=== PATIENT | female | born 1965 | race Caucasian/White ===

== ENCOUNTER 2016-05-15 11:31 | Emergency (ER) | payer OTHER ==
[~2016-05-15] VITALS: Ht 160 cm; Wt 67.3 kg
[~2016-05-15 11:31] MED LIST: ABILIFY5 MG; ADVAIR 250/501 DISK IH; ADVAIR HFA120 INHALA IH; ADVIL PM1 TABLET PO; ADVIL200 MG PO; ALBUTEROL SULF8.5 GM IH; AMBIEN10 MG PO; ATARAX,VISTARIL25 MG PO; AZELEX 20% CREA30 GM TP; BACTRIM,SEPT1 TABLET PO; BENADRYL ALLERG25 MG PO; BENADRYL25 MG PO; BENADRYL50 MG PO; CEFDINIR300 MG PO; CITALOPRAM HBR20 MG PO; CLINDAMYCIN HC300 MG PO; CLONAZEPAM0.5 MG; CLONAZEPAM1 MG PO; CLONIDINE HCL0.1 MG PO; COGENTIN0.5 MG PO; CORTIZONE-1028 GM TP; CORTIZONE-1057 GM TP; CYCLOBENZAPRINE10 M1 PO; DELTASONE20 M1 PO; DEPAKOTE ER250 MG PO; DEPAKOTE ER500 MG PO; DEPAKOTE250 MG PO; DEPAKOTE500 MG PO; DERMACINRX SIL1 EACH TP; DIVALPROEX SOD250 M1 PO; DIVALPROEX SOD250 MG PO; DIVALPROEX SOD500 M1 PO; DIVALPROEX SOD500 MG PO; ELIMITE 5% CREA60 GM TP; ENDOCET 5-3251 EACH; FAMOTIDINE20 MG PO; FANAPT6 MG PO; FLEXERIL10 MG PO; FLUOXETINE HCL20 MG PO; GABAPENTIN300 MG PO; GABAPENTIN600 MG PO; HALDOL1 MG PO; HALDOL10 MG PO; HALDOL5 MG PO; HALOPERIDOL1 MG PO; KEFLEX500 MG PO; KENALOG,ARISTOC15 G2 TP; KENALOG,ARISTOC80 GM TP; KLONOPIN1 MG PO; LABETALOL HCL100 MG PO; LEXAPRO20 MG PO; LICE TREATMENT118 ML TP; LISINOPRIL10 MG PO; LITHIUM CARBON300 M2 PO; LORATADINE10 M2 PO; MIRTAZAPINE15 MG; MIRTAZAPINE30 MG PO; MOTRIN800 MG PO; NAPROSYN500 MG PO; NAPROXEN500 MG PO; NICOTINE PATCH1 EAC2 TD; NOHOMEMEDS; NORCO 5/3251 TABLET PO; OLANZAPINE10 MG PO; PEPCID40 MG PO; PERCOCET 5/31 TABLET PO; PREDNISONE10 M1 PO; PREDNISONE10 MG PO; PREDNISONE20 MG PO; PREDNISONE50 MG PO; PROAIR HFA8.5 GM; PROAIR HFA8.5 GM IH; PROMETHAZINE HC25 M1 PO; PYRIDIUM100 MG PO; QUETIAPINE FUM100 MG PO; QUETIAPINE FUM200 MG PO; QUETIAPINE FUM400 MG PO; REMERON15 M2 PO; RISPERDAL0.5 MG PO; SEROQUEL200 MG PO; TRIPLE ANTIB28.35 GM TP; VENTOLIN HFA18 GM IH; VIBRAMYCIN100 MG PO; VICODIN,LORT1 TABLET PO; ZANTAC150 MG PO; ZITHROMAX TRI-500 MG PO; ZITHROMAX Z-PA250 MG PO; ZOLOFT50 MG PO; ZOLPIDEM TARTRA10 MG; ZYPREXA15 MG PO; ZYRTEC10 M2 PO
[2016-05-15 14:20] LABS: EOSINOPHIL (%) 1.2 % (0-5); EOSINOPHIL COUNT 0.1 K/uL (0-0.3); HEMATOCRIT 39.1 % (36.0-46.0); IMMATURE GRANULOCYTE (%) 0.2 % (0.0-0.7); IMMATURE GRANULOCYTE COUNT 0.2 K/uL; LYMPHOCYTE COUNT 3.9 K/uL (1.0-2.8); MCH 30.9 PG (29.0-34.0); MCHC 34.3 G/DL (30.0-36.0); MCV 90.1 FL (83-99); MEAN PLAT.VOLUME 9.2 uM^3 (9.5-12.4); MONOCYTE COUNT 0.7 K/uL (0-0.8); NEUTROPHIL (%) 57.7 % (45-76); NEUTROPHIL COUNT 6.5 K/uL (1.8-6.4); PLATELET COUNT 321 K/uL (156-360); RBC DIS.WIDTH-CV 13.3 % (11.8-14.6); RBC DIS.WIDTH-SD 42.8 % (39-53); RED BLOOD COUNT 4.34 M/uL (3.80-5.20); WHITE BLOOD COUNT 11.2 K/uL (4.1-10.2)
[2016-05-15 14:30] LABS: CHLORIDE 101 mEq/L (99-109); POTASSIUM 2.9 mEq/L (3.7-5.4); SODIUM 136 mEq/L (136-147)
[2016-05-15 14:32] LABS: GLUCOSE 95 mg/dL (70-99)
[2016-05-15 14:33] LABS: ANION GAP 10 MEQ/L (2-14)
[2016-05-15 14:36] LABS: GFR ESTIMATE (CALCULATED) > 59 mL/min/
[2016-05-15 14:37] LABS: UREA NITROGEN (BUN) 7 mg/dL (9-23)
[2016-05-15 14:40] LABS: TROP-I INTERPRETATION NEGATIVE; TROPONIN-I < 0.01 ng/mL (0.0-0.30)
[2016-05-15 15:05] LABS: ADD MIUA? NO; BILIRUBIN NEGATIVE; BLOOD NEGATIVE; GLUCOSE (STRIP) NEGATIVE; KETONES NEGATIVE; LEUKOCYTES NEGATIVE; NITRITE NEGATIVE; PROTEIN (STRIP) NEGATIVE; SPECIFIC GRAVITY 1.014 (1.000-1.030); UCUL ADDED? NO; UROBILINOGEN 0.2 MG/DL (0.2-1.0)
[2016-05-15 15:07] LABS: COLOR LT YELLOW ((YELLOW))
[2016-05-15] MEDS ORDERED: PROZAC20 MG PO (15:10)
[2016-05-15] MEDS ORDERED: K-DUR20 MEQ PO (15:56)
[2016-05-15 16:16] VITALS: BP 158/95
== END 2016-05-15 16:18 | disposition home or self-care (01) ==
LOC: EME 11:31
PROVIDERS: Emergency Medicine
DX: R07.89 Other chest pain (principal); F41.9 Anxiety disorder, unspecified; E87.6 Hypokalemia; J45.909 Unspecified asthma, uncomplicated; I10 Essential (primary) hypertension; I25.2 Old myocardial infarction; F17.200 Nicotine dependence, unspecified, uncomplicated
CPT/HCPCS: 71010; 80048; 81003; 84484; 85025; 93005; 99281; 99284; Q0177

== ENCOUNTER 2016-05-26 12:29 | Emergency (ER) | payer OTHER ==
[~2016-05-26] VITALS: Ht 160 cm; Wt 68.1 kg
[~2016-05-26 12:29] MED LIST changes: +K-DUR20 MEQ PO; +PROZAC20 MG PO
[2016-05-26] MEDS ORDERED: GABAPENTIN600 MG PO (13:14)
[2016-05-26] MEDS ORDERED: HYDROXYZINE HCL25 MG PO (13:16)
[2016-05-26] MEDS ORDERED: IBUPROFEN800 MG PO (13:16)
[2016-05-26] MEDS ORDERED: KENALOG,ARISTOC80 GM TP (13:18)
[2016-05-26] MEDS ORDERED: NYSTATIN15 GM TP (13:19)
[2016-05-26] MEDS ORDERED: TRIAMCINOLONE 0.1% TP (13:20)
[2016-05-26 14:14] LABS: HEMATOCRIT 38.3 % (36.0-46.0); MCH 30.5 PG (29.0-34.0); MCHC 34.2 G/DL (30.0-36.0); MCV 89.1 FL (83-99); PLATELET COUNT 397 K/uL (156-360); RBC DIS.WIDTH-CV 13.4 % (11.8-14.6); RBC DIS.WIDTH-SD 42.7 % (39-53)
[2016-05-26 14:26] LABS: CHLORIDE 101 mEq/L (99-109); POTASSIUM 3.4 mEq/L (3.7-5.4); SODIUM 134 mEq/L (136-147)
[2016-05-26 14:28] LABS: GLUCOSE 105 mg/dL (70-99); PROTHROMBIN TIME 10.6 (9.2-11.2); PTT 26.8 (25-32)
[2016-05-26 14:29] LABS: ANION GAP 11 MEQ/L (2-14)
[2016-05-26 14:31] LABS: GFR ESTIMATE (CALCULATED) > 59 mL/min/
[2016-05-26 14:32] LABS: UREA NITROGEN (BUN) 5 mg/dL (9-23)
[2016-05-26 16:27] VITALS: BP 142/85
== END 2016-05-26 16:28 | disposition home or self-care (01) ==
LOC: EME 12:29
PROVIDERS: Physician Assistant
DX: S80.12XA Contusion of left lower leg, initial encounter (principal); E87.1 Hypo-osmolality and hyponatremia; E87.6 Hypokalemia; F20.0 Paranoid schizophrenia; I10 Essential (primary) hypertension; I25.2 Old myocardial infarction; J44.9 Chronic obstructive pulmonary disease, unspecified; M54.9 Dorsalgia, unspecified; G89.29 Other chronic pain; F17.200 Nicotine dependence, unspecified, uncomplicated
CPT/HCPCS: 80048; 83880; 85027; 85610; 85730; 93971; 99281; 99284

== ENCOUNTER 2016-08-21 04:57 | Inpatient (IN) | payer OTHER ==
[~2016-08-21] VITALS: Ht 162.6 cm; Wt 64.2 kg
[~2016-08-21 04:57] MED LIST changes: +HYDROXYZINE HCL25 MG PO; +IBUPROFEN800 MG PO; +NYSTATIN15 GM TP; +TRIAMCINOLONE 0.1% TP
[2016-08-21 05:41] LABS: HEMATOCRIT 42.2 % (36.0-46.0); MCH 30.2 PG (29.0-34.0); MCHC 33.6 G/DL (30.0-36.0); MCV 89.8 FL (83-99); MEAN PLAT.VOLUME 9.6 uM^3 (9.5-12.4); PLATELET COUNT 311 K/uL (156-360); RBC DIS.WIDTH-CV 13.3 % (11.8-14.6); RBC DIS.WIDTH-SD 43.8 % (39-53); WHITE BLOOD COUNT 8.5 K/uL (4.1-10.2)
[2016-08-21 05:52] LABS: CHLORIDE 102 mEq/L (99-109); POTASSIUM 3.4 mEq/L (3.7-5.4); SODIUM 136 mEq/L (136-147)
[2016-08-21 05:53] LABS: GLUCOSE 108 mg/dL (70-99)
[2016-08-21 05:55] LABS: ANION GAP 12 MEQ/L (2-14)
[2016-08-21 05:57] LABS: GFR ESTIMATE (CALCULATED) > 59 mL/min/; SERUM ETHYL ALCOHOL < 10 mg/dL
[2016-08-21 05:58] LABS: UREA NITROGEN (BUN) 5 mg/dL (9-23)
[2016-08-21 09:27] LABS: ADD MIUA? YES; BILIRUBIN NEGATIVE; BLOOD SMALL; COLOR YELLOW ((YELLOW)); GLUCOSE (STRIP) NEGATIVE; KETONES NEGATIVE; LEUKOCYTES NEGATIVE; NITRITE NEGATIVE; PROTEIN (STRIP) 30; SPECIFIC GRAVITY 1.006 (1.000-1.030); UROBILINOGEN 0.2 MG/DL (0.2-1.0)
[2016-08-21 09:36] LABS: AMPHETAMINE NEGATIVE (500 ng/mL); BARBITURATES NEGATIVE (200 ng/mL); BENZODIAZEPINES NEGATIVE (150 ng/mL); COCAINE NEGATIVE (150 ng/mL); INTERNAL CONTROLS VALID? YES; METHADONE NEGATIVE (200 ng/mL); METHAMPHETAMINE NEGATIVE (500 ng/mL); OPIATES (MORPHINE) NEGATIVE (100 ng/mL); OXYCODONE NEGATIVE (100 ng/mL); PHENCYCLIDINE NEGATIVE (25 ng/mL); PROPOXYPHENE NEGATIVE (300 ng/mL); THC CANNABINOIDS NEGATIVE (50 ng/mL); TRICYCLIC ANTIDEPRESSANTS NEGATIVE (300 ng/mL)
[2016-08-21 09:39] LABS: BACTERIA RARE /HPF; EPITHELIAL CELLS RARE /HPF; HYALINE CASTS 0-5 /LPF; MUCUS TRACE /LPF; RED BLOOD CELLS 0-5 /HPF (0-5); UCUL ADDED? NO; WHITE BLOOD CELLS 0-5 /HPF (0-5)
[2016-08-21] MEDS ORDERED: BACTROBAN OINTM22 GM TP (13:23)
[2016-08-21 13:55] VITALS: BP 114/88
[2016-08-21 14:13] VITALS: BP 181/100
[2016-08-21 16:15] VITALS: BP 186/106
[2016-08-21 18:35] VITALS: BP 168/97
[2016-08-22 00:10] VITALS: BP 120/75
[2016-08-22 08:19] VITALS: BP 145/89
[2016-08-22 16:27] VITALS: BP 134/79
[2016-08-23 08:07] VITALS: BP 144/87
[2016-08-23 16:00] VITALS: BP 152/79
[2016-08-24 07:50] VITALS: BP 153/83
[2016-08-24 13:09] VITALS: BP 142/83
[2016-08-24 15:32] VITALS: BP 151/72
[2016-08-25 07:54] VITALS: BP 152/86
[2016-08-25 15:36] VITALS: BP 159/90
[2016-08-26 07:54] VITALS: BP 147/83
[2016-08-27 07:59] VITALS: BP 142/94
[2016-08-27 15:42] VITALS: BP 150/85
[2016-08-28 07:44] VITALS: BP 176/90
[2016-08-28] MEDS ORDERED: GABAPENTIN600 MG PO (09:46)
[2016-08-28] MEDS ORDERED: OLANZAPINE20 MG PO (09:46)
[2016-08-28] MEDS ORDERED: FLUOXETINE HCL20 MG PO (09:46)
[2016-08-28] MEDS ORDERED: ATARAX,VISTARIL50 MG PO (12:59)
== END 2016-08-28 13:30 | disposition home or self-care (01) | DRG 885 ==
LOC: EME 04:57 → 1WEST 11:53 → EDOF 11:53 → 1WEST 13:52
PROVIDERS: Emergency Medicine
DX: F25.9 Schizoaffective disorder, unspecified (principal); F23 Brief psychotic disorder; F17.210 Nicotine dependence, cigarettes, uncomplicated; R45.1 Restlessness and agitation; I10 Essential (primary) hypertension; G43.909 Migraine, unspecified, not intractable, without status migrainosus; J45.909 Unspecified asthma, uncomplicated; M54.9 Dorsalgia, unspecified; G62.9 Polyneuropathy, unspecified; F41.9 Anxiety disorder, unspecified; I25.10 Atherosclerotic heart disease of native coronary artery without angina pectoris; R45.4 Irritability and anger; R00.0 Tachycardia, unspecified; B88.9 Infestation, unspecified; G47.00 Insomnia, unspecified; G89.29 Other chronic pain; Z91.14 Patient's other noncompliance with medication regimen; Z91.128 Patient's intentional underdosing of medication regimen for other reason; Z60.2 Problems related to living alone; Z56.0 Unemployment, unspecified; Z73.6 Limitation of activities due to disability; I25.2 Old myocardial infarction; Z88.5 Allergy status to narcotic agent; Z87.440 Personal history of urinary (tract) infections
CPT/HCPCS: 80048; 81003; 85027; 90837; 94640; 94640 76; 97150 GO; 97166 GO; 99202; 99281; 99285; G0480; Q0177

== ENCOUNTER 2016-08-29 21:44 | Inpatient (IN) | payer OTHER ==
[~2016-08-29] VITALS: Ht 160 cm; Wt 66.2 kg
[~2016-08-29 21:44] MED LIST changes: +ATARAX,VISTARIL50 MG PO; +BACTROBAN OINTM22 GM TP; +OLANZAPINE20 MG PO
[2016-08-29 22:59] LABS: HEMATOCRIT 37.5 % (36.0-46.0); MCH 30.4 PG (29.0-34.0); MCHC 33.9 G/DL (30.0-36.0); MCV 89.7 FL (83-99); MEAN PLAT.VOLUME 9.4 uM^3 (9.5-12.4); PLATELET COUNT 285 K/uL (156-360); RBC DIS.WIDTH-CV 13.4 % (11.8-14.6); RBC DIS.WIDTH-SD 44.2 % (39-53); RED BLOOD COUNT 4.18 M/uL (3.80-5.20); WHITE BLOOD COUNT 11.3 K/uL (4.1-10.2)
[2016-08-29 23:08] LABS: CHLORIDE 104 mEq/L (99-109); POTASSIUM 3.6 mEq/L (3.7-5.4); SODIUM 138 mEq/L (136-147)
[2016-08-29 23:11] LABS: GLUCOSE 105 mg/dL (70-99)
[2016-08-29 23:12] LABS: ANION GAP 9 MEQ/L (2-14); TOTAL BILIRUBIN 0.2 mg/dL (0.0-1.0)
[2016-08-29 23:13] LABS: SERUM ETHYL ALCOHOL < 10 mg/dL
[2016-08-29 23:14] LABS: ALKALINE PHOSPHATASE 91 IU/L (3-129); GFR ESTIMATE (CALCULATED) > 59 mL/min/
[2016-08-29 23:15] LABS: UREA NITROGEN (BUN) 10 mg/dL (9-23)
[2016-08-29 23:19] LABS: ADD MIUA? YES; BILIRUBIN NEGATIVE; BLOOD SMALL; COLOR STRAW ((YELLOW)); GLUCOSE (STRIP) NEGATIVE; KETONES NEGATIVE; LEUKOCYTES NEGATIVE; NITRITE NEGATIVE; PROTEIN (STRIP) NEGATIVE; SPECIFIC GRAVITY 1.004 (1.000-1.030); UROBILINOGEN 0.2 MG/DL (0.2-1.0)
[2016-08-29 23:21] LABS: BACTERIA RARE /HPF; EPITHELIAL CELLS RARE /HPF; MUCUS NONE SEEN /LPF; RED BLOOD CELLS 0-5 /HPF (0-5); WHITE BLOOD CELLS 0-5 /HPF (0-5)
[2016-08-29 23:28] LABS: AMPHETAMINE NEGATIVE (500 ng/mL); BARBITURATES NEGATIVE (200 ng/mL); BENZODIAZEPINES NEGATIVE (150 ng/mL); COCAINE NEGATIVE (150 ng/mL); INTERNAL CONTROLS VALID? YES; METHADONE NEGATIVE (200 ng/mL); METHAMPHETAMINE NEGATIVE (500 ng/mL); OPIATES (MORPHINE) NEGATIVE (100 ng/mL); OXYCODONE NEGATIVE (100 ng/mL); PHENCYCLIDINE NEGATIVE (25 ng/mL); PROPOXYPHENE NEGATIVE (300 ng/mL); THC CANNABINOIDS PRESUMPTIVE POSITIVE (50 ng/mL); TRICYCLIC ANTIDEPRESSANTS NEGATIVE (300 ng/mL)
[2016-08-29 23:29] LABS: ADD MEDTOX COMMENT Y
[2016-08-30 09:42] VITALS: BP 178/103
[2016-08-30 09:49] VITALS: BP 178/103
[2016-08-30 15:45] VITALS: BP 110/58
[2016-08-31 07:58] VITALS: BP 165/93
[2016-08-31 11:55] VITALS: BP 137/87
[2016-08-31 16:22] VITALS: BP 141/74
[2016-09-01 08:09] VITALS: BP 140/86
[2016-09-01 15:54] VITALS: BP 152/81
[2016-09-02 08:05] VITALS: BP 138/91
[2016-09-02 10:37] VITALS: BP 143/80
[2016-09-02 15:52] VITALS: BP 121/64
[2016-09-03 07:36] VITALS: BP 148/75
[2016-09-03 10:30] VITALS: BP 151/66
[2016-09-03 15:38] VITALS: BP 139/72
[2016-09-04 07:47] VITALS: BP 162/89
[2016-09-04 11:36] VITALS: BP 140/85
[2016-09-04 15:35] VITALS: BP 116/59
[2016-09-05 08:06] VITALS: BP 147/87
[2016-09-05 15:48] VITALS: BP 126/64
[2016-09-06 07:45] VITALS: BP 150/74
[2016-09-06] MEDS ORDERED: OLANZAPINE10 MG PO (10:41)
[2016-09-06] MEDS ORDERED: LORAZEPAM1 MG PO (10:41)
== END 2016-09-06 14:01 | disposition home or self-care (01) | DRG 885 ==
LOC: EME 21:44 → 1WEST 08-30 03:10 → EDOF 08-30 03:10 → 1WEST 08-30 03:10 → EDOF 08-30 03:23 → 1WEST 08-30 09:43
PROVIDERS: Emergency Medicine
DX: F20.0 Paranoid schizophrenia (principal); F25.9 Schizoaffective disorder, unspecified; J45.909 Unspecified asthma, uncomplicated; I10 Essential (primary) hypertension; G43.909 Migraine, unspecified, not intractable, without status migrainosus; G89.29 Other chronic pain; M54.9 Dorsalgia, unspecified; F41.9 Anxiety disorder, unspecified; I25.2 Old myocardial infarction
CPT/HCPCS: 80053; 81003; 84999; 85027; 90837; 94640; 94640 76; 97150 GO; 97166 GO; 99281; 99285; G0480

== ENCOUNTER 2016-09-17 14:17 | Inpatient (IN) | payer OTHER ==
[~2016-09-17] VITALS: Ht 160 cm; Wt 62.4 kg
[~2016-09-17 14:17] MED LIST changes: +LORAZEPAM1 MG PO
[2016-09-17 15:53] LABS: EOSINOPHIL (%) 0 % (0-5); HEMATOCRIT 33.3 % (36.0-46.0); IMMATURE GRANULOCYTE (%) 0.9 % (0.0-0.7); IMMATURE GRANULOCYTE COUNT 0.1 K/uL; INSTRUMENT ABS NEUTROPHIL CT 9.1 K/uL; LYMPHOCYTE COUNT 1.4 K/uL (1.0-2.8); MCH 29.8 PG (29.0-34.0); MCHC 32.7 G/DL (30.0-36.0); MONOCYTE (%) 6.6 % (3-12); MONOCYTE COUNT 0.8 K/uL (0-0.8); NEUTROPHIL (%) 80.4 % (45-76); NEUTROPHIL COUNT 9.1 K/uL (1.8-6.4); PLATELET COUNT 330 K/uL (156-360); RBC DIS.WIDTH-CV 13.6 % (11.8-14.6); RBC DIS.WIDTH-SD 45.9 % (39-53); RED BLOOD COUNT 3.66 M/uL (3.80-5.20); WHITE BLOOD COUNT 11.3 K/uL (4.1-10.2)
[2016-09-17 16:07] LABS: CHLORIDE 104 mEq/L (99-109); POTASSIUM 3.2 mEq/L (3.7-5.4); SODIUM 138 mEq/L (136-147)
[2016-09-17 16:09] LABS: GLUCOSE 139 mg/dL (70-99)
[2016-09-17 16:10] LABS: ANION GAP 11 MEQ/L (2-14)
[2016-09-17 16:11] LABS: TOTAL BILIRUBIN 0.3 mg/dL (0.0-1.0)
[2016-09-17 16:12] LABS: ALKALINE PHOSPHATASE 96 IU/L (3-129)
[2016-09-17 16:13] LABS: GFR ESTIMATE (CALCULATED) > 59 mL/min/
[2016-09-17 16:14] LABS: UREA NITROGEN (BUN) 9 mg/dL (9-23)
[2016-09-17 16:16] LABS: LIPASE 11 U/L (1.0-51.0)
[2016-09-17 16:22] LABS: TROP-I INTERPRETATION NEGATIVE; TROPONIN-I < 0.01 ng/mL (0.0-0.30)
[2016-09-17] MEDS ORDERED: ATARAX,VISTARIL50 MG PO (17:10)
[2016-09-17 17:13] LABS: ADD MIUA? YES; BILIRUBIN NEGATIVE; BLOOD MODERATE; COLOR YELLOW ((YELLOW)); GLUCOSE (STRIP) NEGATIVE; KETONES 5; LEUKOCYTES TRACE; NITRITE NEGATIVE; PROTEIN (STRIP) 100
[2016-09-17 18:19] LABS: BACTERIA 1+ /HPF; CASTS NONE SEEN /LPF; CRYSTALS NONE SEEN; EPITHELIAL CELLS 1+ /HPF; MUCUS 3+ /LPF; RED BLOOD CELLS 0-5 /HPF (0-5); UCUL ADDED? NO; WHITE BLOOD CELLS 0-5 /HPF (0-5)
[2016-09-17 22:00] VITALS: BP 115/62
[2016-09-18] VITALS: BP 108/61
[2016-09-18 07:56] VITALS: BP 113/58
[2016-09-18 08:39] LABS: HEMATOCRIT 37.7 % (36.0-46.0); MCH 29.6 PG (29.0-34.0); MCHC 31.8 G/DL (30.0-36.0); MCV 92.9 FL (83-99); MEAN PLAT.VOLUME 9.8 uM^3 (9.5-12.4); PLATELET COUNT 424 K/uL (156-360); RBC DIS.WIDTH-CV 13.8 % (11.8-14.6); RBC DIS.WIDTH-SD 47.7 % (39-53); RED BLOOD COUNT 4.06 M/uL (3.80-5.20); WHITE BLOOD COUNT 9.6 K/uL (4.1-10.2)
[2016-09-18 09:06] LABS: ALKALINE PHOSPHATASE 102 IU/L (3-129); ANION GAP 9 MEQ/L (2-14); CHLORIDE 105 MEQ/L (99-109); GFR ESTIMATE (CALCULATED) > 59 mL/min/; GLUCOSE 127 mg/dL (70-99); SAMPLE HEMOLYSIS CHECK 0; SAMPLE ICTERIC CHECK 0; SAMPLE LIPEMIA CHECK 0; SODIUM 141 MEQ/L (136-147); TOTAL BILIRUBIN 0.2 MG/DL (0.0-1.0); UREA NITROGEN (BUN) 13 mg/dL (9-23)
[2016-09-18 09:12] LABS: POTASSIUM 4.8 MEQ/L (3.7-5.4)
[2016-09-18 10:59] VITALS: BP 104/58
[2016-09-18 16:18] VITALS: BP 114/68
[2016-09-18 19:46] VITALS: BP 103/60
[2016-09-18 23:36] VITALS: BP 105/66
[2016-09-19 07:27] VITALS: BP 124/68
[2016-09-19 15:28] VITALS: BP 125/68
[2016-09-19 23:43] VITALS: BP 119/60
[2016-09-20 07:20] VITALS: BP 159/86
[2016-09-20 15:48] VITALS: BP 136/71
[2016-09-20 23:23] VITALS: BP 129/66
[2016-09-21 07:38] VITALS: BP 137/80
[2016-09-21] MEDS ORDERED: SPIRIVA RESPIMAT4 GM IH (13:02)
[2016-09-21] MEDS ORDERED: OLANZAPINE10 MG PO (13:02)
[2016-09-21] MEDS ORDERED: MUCINEX600 MG PO (13:03)
[2016-09-21] MEDS ORDERED: ADVAIR HFA120 INHALA IH (13:03)
[2016-09-21] MEDS ORDERED: PREDNISONE10 MG PO (13:06)
[2016-09-21] MEDS ORDERED: CEFDINIR300 MG PO (13:06)
== END 2016-09-21 15:33 | disposition home or self-care (01) | DRG 192 ==
LOC: EME 14:17 → EDOF 18:18 → 5SOUTH 18:18
PROVIDERS: Emergency Medicine; Internal Medicine
DX: J44.1 Chronic obstructive pulmonary disease with (acute) exacerbation (principal); F20.9 Schizophrenia, unspecified; J40 Bronchitis, not specified as acute or chronic; R19.7 Diarrhea, unspecified; E87.6 Hypokalemia; F17.210 Nicotine dependence, cigarettes, uncomplicated; G89.29 Other chronic pain; M54.9 Dorsalgia, unspecified; F41.9 Anxiety disorder, unspecified; F32.9 Major depressive disorder, single episode, unspecified; F19.10 Other psychoactive substance abuse, uncomplicated; I10 Essential (primary) hypertension; G43.909 Migraine, unspecified, not intractable, without status migrainosus; F12.10 Cannabis abuse, uncomplicated; Z90.721 Acquired absence of ovaries, unilateral; I25.2 Old myocardial infarction; Z87.440 Personal history of urinary (tract) infections
CPT/HCPCS: 71010; 71020; 71275; 74177; 80053; 81003; 83605; 83630; 83690; 83880; 84484; 85025; 85027; 87040; 87086; 87177; 87493; 93005; 94640; 94640 76; 94760; 94799; 99202; 99281; 99285; J0696; J1644; J2930; J7030; J7050; J7512; J7644

== ENCOUNTER 2016-11-08 14:18 | Emergency (ER) | payer OTHER ==
[~2016-11-08] VITALS: Ht 160 cm; Wt 65.3 kg
[~2016-11-08 14:18] MED LIST changes: +MUCINEX600 MG PO; +SPIRIVA RESPIMAT4 GM IH
[2016-11-08 14:45] LABS: ADD MIUA? YES; BILIRUBIN NEGATIVE; BLOOD SMALL; COLOR YELLOW ((YELLOW)); GLUCOSE (STRIP) NEGATIVE; KETONES NEGATIVE; LEUKOCYTES NEGATIVE; NITRITE NEGATIVE; PROTEIN (STRIP) 30; SPECIFIC GRAVITY 1.015 (1.000-1.030)
[2016-11-08 14:55] LABS: BACTERIA RARE /HPF; CALCIUM OXALATE CRYSTALS 2+ /HPF; EPITHELIAL CELLS RARE /HPF; HYALINE CASTS 0-5 /LPF; MUCUS 3+ /LPF; RED BLOOD CELLS 0-5 /HPF (0-5); UCUL ADDED? NO; WHITE BLOOD CELLS 0-5 /HPF (0-5)
[2016-11-08 16:14] LABS: HEMATOCRIT 42.3 % (36.0-46.0); MCH 30.3 PG (29.0-34.0); MCHC 33.3 G/DL (30.0-36.0); MCV 90.8 FL (83-99); MEAN PLAT.VOLUME 9.5 uM^3 (9.5-12.4); PLATELET COUNT 272 K/uL (156-360); RBC DIS.WIDTH-CV 13.8 % (11.8-14.6); RBC DIS.WIDTH-SD 46.5 % (39-53); RED BLOOD COUNT 4.66 M/uL (3.80-5.20); WHITE BLOOD COUNT 6.7 K/uL (4.1-10.2)
[2016-11-08 16:23] LABS: CHLORIDE 102 mEq/L (99-109); POTASSIUM 3.6 mEq/L (3.7-5.4); SODIUM 136 mEq/L (136-147)
[2016-11-08 16:26] LABS: GLUCOSE 91 mg/dL (70-99)
[2016-11-08 16:27] LABS: ANION GAP 11 MEQ/L (2-14); TOTAL BILIRUBIN 0.2 mg/dL (0.0-1.0)
[2016-11-08 16:29] LABS: ALKALINE PHOSPHATASE 82 IU/L (3-129); GFR ESTIMATE (CALCULATED) > 59 mL/min/
[2016-11-08 16:30] LABS: UREA NITROGEN (BUN) 9 mg/dL (9-23)
[2016-11-08 16:38] LABS: QUANTITATIVE HCG < 4.0 MIU/ML
[2016-11-08] MEDS ORDERED: ZOFRAN ODT4 MG PO (17:15)
[2016-11-08] MEDS ORDERED: MOTRIN600 MG PO (17:15)
[2016-11-08] MEDS ORDERED: BENTYL20 MG PO (17:15)
[2016-11-08 17:26] VITALS: BP 140/85
== END 2016-11-08 17:27 | disposition home or self-care (01) ==
LOC: EME 14:18
PROVIDERS: Nurse Practitioner Family
DX: R19.7 Diarrhea, unspecified (principal); R10.31 Right lower quadrant pain; R35.0 Frequency of micturition; Z87.440 Personal history of urinary (tract) infections; J44.9 Chronic obstructive pulmonary disease, unspecified; I10 Essential (primary) hypertension; I25.2 Old myocardial infarction; F17.200 Nicotine dependence, unspecified, uncomplicated; Z71.6 Tobacco abuse counseling
CPT/HCPCS: 71020; 74176; 80053; 81003; 84702; 85027; 87086; 94640; 99281; 99284; J1885

== ENCOUNTER 2017-01-03 13:08 | Emergency (ER) | payer OTHER ==
[~2017-01-03] VITALS: Ht 160 cm; Wt 67.5 kg
[~2017-01-03 13:08] MED LIST changes: +BENTYL20 MG PO; +MOTRIN600 MG PO; +ZOFRAN ODT4 MG PO
[2017-01-03 13:42] LABS: HEMATOCRIT 42.4 % (36.0-46.0); MCH 30.8 PG (29.0-34.0); MCHC 33.5 G/DL (30.0-36.0); MEAN PLAT.VOLUME 9.2 uM^3 (9.5-12.4); PLATELET COUNT 261 K/uL (156-360); RBC DIS.WIDTH-CV 13.7 % (11.8-14.6); RBC DIS.WIDTH-SD 46.5 % (39-53); RED BLOOD COUNT 4.61 M/uL (3.80-5.20)
[2017-01-03 13:49] LABS: CHLORIDE 104 mEq/L (99-109); POTASSIUM 4.1 mEq/L (3.7-5.4); SODIUM 142 mEq/L (136-147)
[2017-01-03 13:51] LABS: GLUCOSE 122 mg/dL (70-99)
[2017-01-03 13:52] LABS: ANION GAP 11 MEQ/L (2-14)
[2017-01-03 13:53] LABS: TOTAL BILIRUBIN 0.3 mg/dL (0.0-1.0)
[2017-01-03 13:54] LABS: ALKALINE PHOSPHATASE 96 IU/L (3-129)
[2017-01-03 13:55] LABS: GFR ESTIMATE (CALCULATED) > 59 mL/min/
[2017-01-03 13:56] LABS: UREA NITROGEN (BUN) 8 mg/dL (9-23)
[2017-01-03 14:01] LABS: ADD MIUA? YES; BILIRUBIN NEGATIVE; BLOOD SMALL; COLOR YELLOW ((YELLOW)); GLUCOSE (STRIP) NEGATIVE; KETONES NEGATIVE; LEUKOCYTES NEGATIVE; NITRITE NEGATIVE; PROTEIN (STRIP) NEGATIVE; SPECIFIC GRAVITY 1.011 (1.000-1.030); UROBILINOGEN 0.2 MG/DL (0.2-1.0)
[2017-01-03 14:04] LABS: QUANTITATIVE HCG < 4.0 MIU/ML
[2017-01-03 14:04] LABS: BACTERIA RARE /HPF; CALCIUM OXALATE CRYSTALS 1+ /HPF; EPITHELIAL CELLS 1+ /HPF; MUCUS TRACE /LPF; RED BLOOD CELLS 0-5 /HPF (0-5); UCUL ADDED? NO; WHITE BLOOD CELLS 0-5 /HPF (0-5)
[2017-01-03] MEDS ORDERED: BENTYL10 MG PO (15:57)
[2017-01-03 16:44] VITALS: BP 115/81
== END 2017-01-03 16:45 | disposition home or self-care (01) ==
LOC: EME 13:08
DX: R10.31 Right lower quadrant pain (principal); Z87.440 Personal history of urinary (tract) infections; I10 Essential (primary) hypertension; J44.9 Chronic obstructive pulmonary disease, unspecified; I25.2 Old myocardial infarction; F17.200 Nicotine dependence, unspecified, uncomplicated
CPT/HCPCS: 74176; 80053; 81003; 84702; 85027; 99281; 99285; J1630; J7030

== ENCOUNTER 2017-01-13 13:35 | Inpatient (IN) | payer OTHER ==
[~2017-01-13] VITALS: Ht 160 cm; Wt 64.1 kg
[~2017-01-13 13:35] MED LIST changes: +BENTYL10 MG PO
[2017-01-13 14:06] LABS: HEMATOCRIT 39.7 % (36.0-46.0); MCH 30.3 PG (29.0-34.0); MCHC 33.5 G/DL (30.0-36.0); MCV 90.4 FL (83-99); MEAN PLAT.VOLUME 9.5 uM^3 (9.5-12.4); PLATELET COUNT 282 K/uL (156-360); RBC DIS.WIDTH-CV 13.1 % (11.8-14.6); RBC DIS.WIDTH-SD 43.3 % (39-53); RED BLOOD COUNT 4.39 M/uL (3.80-5.20); WHITE BLOOD COUNT 13.9 K/uL (4.1-10.2)
[2017-01-13 14:22] LABS: CHLORIDE 102 mEq/L (99-109); POTASSIUM 3.4 mEq/L (3.7-5.4); SODIUM 137 mEq/L (136-147)
[2017-01-13 14:24] LABS: GLUCOSE 133 mg/dL (70-99)
[2017-01-13 14:25] LABS: ANION GAP 12 MEQ/L (2-14)
[2017-01-13 14:26] LABS: TOTAL BILIRUBIN 0.3 mg/dL (0.0-1.0)
[2017-01-13 14:27] LABS: ALKALINE PHOSPHATASE 101 IU/L (3-129)
[2017-01-13 14:28] LABS: GFR ESTIMATE (CALCULATED) > 59 mL/min/
[2017-01-13 14:29] LABS: UREA NITROGEN (BUN) 7 mg/dL (9-23)
[2017-01-13 14:37] LABS: QUANTITATIVE HCG < 4.0 MIU/ML
[2017-01-13 18:09] LABS: AMPHETAMINE NEGATIVE (500 ng/mL); BARBITURATES NEGATIVE (200 ng/mL); BENZODIAZEPINES NEGATIVE (150 ng/mL); COCAINE NEGATIVE (150 ng/mL); INTERNAL CONTROLS VALID? YES; METHADONE NEGATIVE (200 ng/mL); METHAMPHETAMINE NEGATIVE (500 ng/mL); OPIATES (MORPHINE) NEGATIVE (100 ng/mL); OXYCODONE NEGATIVE (100 ng/mL); PHENCYCLIDINE NEGATIVE (25 ng/mL); PROPOXYPHENE NEGATIVE (300 ng/mL); THC CANNABINOIDS PRESUMPTIVE POSITIVE (50 ng/mL); TRICYCLIC ANTIDEPRESSANTS NEGATIVE (300 ng/mL)
[2017-01-13 18:11] LABS: ADD MEDTOX COMMENT Y
[2017-01-13 18:26] VITALS: BP 136/84
[2017-01-13 18:33] VITALS: BP 136/84
[2017-01-13 18:34] LABS: ADD MIUA? YES; BILIRUBIN SMALL; BLOOD SMALL; COLOR AMBER ((YELLOW)); GLUCOSE (STRIP) NEGATIVE; KETONES 5; LEUKOCYTES TRACE; NITRITE NEGATIVE; PROTEIN (STRIP) 100; SPECIFIC GRAVITY 1.025 (1.000-1.030)
[2017-01-13 18:59] LABS: BACTERIA RARE /HPF; EPITHELIAL CELLS 1+ /HPF; MUCUS 4+ /LPF; UCUL ADDED? YES
[2017-01-13] MEDS ORDERED: ATARAX,VISTARIL50 MG PO (19:38)
[2017-01-13] MEDS ORDERED: GABAPENTIN600 MG PO (19:40)
[2017-01-13] MEDS ORDERED: BENTYL20 MG PO (19:42)
[2017-01-14 07:53] VITALS: BP 145/67
[2017-01-14 12:20] VITALS: BP 131/70
[2017-01-14 15:51] VITALS: BP 136/61
[2017-01-14 18:30] VITALS: BP 119/66
[2017-01-15 07:41] VITALS: BP 138/79
[2017-01-15 15:38] VITALS: BP 141/68
[2017-01-16 07:53] VITALS: BP 132/59
[2017-01-16 15:47] VITALS: BP 148/81
[2017-01-17 07:51] VITALS: BP 131/73
[2017-01-17 13:02] VITALS: BP 113/68
[2017-01-17 15:18] VITALS: BP 122/72
[2017-01-18 07:54] VITALS: BP 128/56
[2017-01-18 08:50] LABS: EOSINOPHIL (%) 1.4 % (0-5); EOSINOPHIL COUNT 0.1 K/uL (0-0.3); HEMATOCRIT 35.8 % (36.0-46.0); IMMATURE GRANULOCYTE (%) 0.3 % (0.0-0.7); INSTRUMENT ABS NEUTROPHIL CT 6.9 K/uL; LYMPHOCYTE COUNT 1.3 K/uL (1.0-2.8); MCV 91.1 FL (83-99); MEAN PLAT.VOLUME 9.1 uM^3 (9.5-12.4); MONOCYTE (%) 4.8 % (3-12); MONOCYTE COUNT 0.4 K/uL (0-0.8); NEUTROPHIL (%) 78.3 % (45-76); NEUTROPHIL COUNT 6.9 K/uL (1.8-6.4); PLATELET COUNT 338 K/uL (156-360); RBC DIS.WIDTH-CV 13.2 % (11.8-14.6); RBC DIS.WIDTH-SD 44.7 % (39-53); RED BLOOD COUNT 3.93 M/uL (3.80-5.20); WHITE BLOOD COUNT 8.8 K/uL (4.1-10.2)
[2017-01-18 09:16] LABS: CHLORIDE 99 mEq/L (99-109); SODIUM 137 mEq/L (136-147)
[2017-01-18 09:18] LABS: GLUCOSE 148 mg/dL (70-99)
[2017-01-18 09:19] LABS: ANION GAP 11 MEQ/L (2-14)
[2017-01-18 09:21] LABS: ALKALINE PHOSPHATASE 101 IU/L (3-129)
[2017-01-18 09:22] LABS: GFR ESTIMATE (CALCULATED) > 59 mL/min/
[2017-01-18 09:23] LABS: UREA NITROGEN (BUN) 11 mg/dL (9-23)
[2017-01-18 09:24] LABS: POTASSIUM 4.1 mEq/L (3.7-5.4); TOTAL BILIRUBIN 0.2 mg/dL (0.0-1.0)
[2017-01-18 15:40] VITALS: BP 122/76
[2017-01-19 07:26] VITALS: BP 138/73
[2017-01-19 15:35] VITALS: BP 124/59
[2017-01-20 07:41] VITALS: BP 128/64
[2017-01-20 15:46] VITALS: BP 148/72
[2017-01-21 07:49] VITALS: BP 125/56
[2017-01-21 15:32] VITALS: BP 122/57
[2017-01-22 07:49] VITALS: BP 130/60
[2017-01-22 15:45] VITALS: BP 117/63
[2017-01-23 08:14] VITALS: BP 122/75
[2017-01-23 15:51] VITALS: BP 121/59
[2017-01-24 07:51] VITALS: BP 111/59
[2017-01-24] MEDS ORDERED: DIVALPROEX SOD250 M1 PO (08:44)
[2017-01-24] MEDS ORDERED: OLANZAPINE10 MG PO (08:44)
[2017-01-24] MEDS ORDERED: GABAPENTIN600 MG PO (08:44)
[2017-01-24] MEDS ORDERED: CHLORPROMAZINE50 MG PO (08:44)
[2017-01-24] MEDS ORDERED: VENTOLIN HFA18 GM IH (08:44)
[2017-01-24] MEDS ORDERED: SPIRIVA RESPIMAT4 GM IH (08:44)
[2017-01-24] MEDS ORDERED: CLONAZEPAM1 MG PO (08:44)
[2017-01-24] MEDS ORDERED: ADVAIR HFA120 INHALA IH (08:44)
[2017-01-24] MEDS ORDERED: Prelone,Orapred PO (08:48)
== END 2017-01-24 11:39 | disposition home or self-care (01) | DRG 885 ==
LOC: EME 13:35 → 1WEST 17:15 → EDOF 17:15 → ENRESERV 18:14 → 1WEST 18:14
PROVIDERS: Physician Assistant Medical; Psychiatry & Neurology Psychiatry
DX: F25.9 Schizoaffective disorder, unspecified (principal); N39.0 Urinary tract infection, site not specified; J44.0 Chronic obstructive pulmonary disease with (acute) lower respiratory infection; J20.9 Acute bronchitis, unspecified; F12.10 Cannabis abuse, uncomplicated; F41.9 Anxiety disorder, unspecified; I10 Essential (primary) hypertension; F17.200 Nicotine dependence, unspecified, uncomplicated; F32.9 Major depressive disorder, single episode, unspecified; G43.909 Migraine, unspecified, not intractable, without status migrainosus; G89.29 Other chronic pain; M54.9 Dorsalgia, unspecified; I25.2 Old myocardial infarction; Z91.19 Patient's noncompliance with other medical treatment and regimen
CPT/HCPCS: 71020; 80053; 80164; 81003; 82140; 84702; 84999; 85025; 85027; 87086; 90839; 93005; 94640; 94640 76; 97150 GO; 97166 GO; 99202; 99281; 99285; Q0161